=== PATIENT | female | born 1975 | race African-American/Black ===

== ENCOUNTER 2021-06-22 09:05 | Outpatient (CLI) | payer OTHER | END 2021-06-22 09:06 | disposition home or self-care (01) | LOC: CSHULT 09:05 | PROVIDERS: ATTEND Family Medicine | DX: Z12.31 Encounter for screening mammogram for malignant neoplasm of breast (principal); N94.6 Dysmenorrhea, unspecified; D25.9 Leiomyoma of uterus, unspecified; N83.201 Unspecified ovarian cyst, right side | CPT/HCPCS: 76856; 77063; 77067 ==

== ENCOUNTER 2022-06-18 10:39 | Outpatient (CLI) | payer BC | END 2022-06-18 10:40 | disposition home or self-care (01) | LOC: CSHRAD 10:39 | PROVIDERS: ATTEND Family Medicine | DX: M25.512 Pain in left shoulder (principal); M25.511 Pain in right shoulder; M19.012 Primary osteoarthritis, left shoulder; M19.011 Primary osteoarthritis, right shoulder ==

== ENCOUNTER 2023-06-12 10:19 | Outpatient (CLI) | payer BC | END 2023-06-12 10:20 | disposition home or self-care (01) | LOC: CSHMAMMO 10:19 | PROVIDERS: ATTEND Family Medicine | DX: Z12.31 Encounter for screening mammogram for malignant neoplasm of breast (principal) | CPT/HCPCS: 77063; 77067 ==

== ENCOUNTER 2025-07-14 10:13 | Outpatient (CLI) | payer BC | END 2025-07-14 10:14 | disposition home or self-care (01) | LOC: CSHMRI 10:13 | PROVIDERS: ATTEND Orthopaedic Surgery Hand Surgery | DX: D17.21 Benign lipomatous neoplasm of skin and subcutaneous tissue of right arm (principal); M15.1 Heberden's nodes (with arthropathy); M25.441 Effusion, right hand ==